=== PATIENT | male | born 1935 | race Caucasian/White ===

== ENCOUNTER → 2016-06-18 | Outpatient (CLI) | payer OTHER ==
[~2016-06-18] MED LIST: AGG PO; ATOR-24 PO; ENAL1TAB31 PO; EXM/25 PO; EYE PROMISE PO; FINA5TAB4 PO; FURO-85 PO; HYDR-5688 PO; INSUINJ SC; INSUINJ17 SC; LEUP1INJ15 IM; LEVO125T4 PO; LPT40 PO; LSX40 PO; LVQ500 PO; METO50TA16 PO; MULT-506 PO; THERA TOP; TRAV0.00 OPB; [UNRECOGNIZED DRUG - CODE] PO
--- NOTE | 2016-06-18 14:18 | DIAGNOSTIC IMAGING REPORT ---
PET/CT HISTORY: Breast cancer. TECHNIQUE: PET/CT was performed from the base of the skull through the pelvis following the intravenous administration of 14.4 mCi of F18-FDG. Non-contrast CT imaging was performed over the same range without breath-hold for attenuation correction of PET images and anatomic correlation, but not for primary interpretation as it is not of standard diagnostic quality. CT DOSE: COMPARISON: PET CT 01/09/2016. FINDINGS: HEAD AND NECK: FDG uptake within the thyroid gland persists and is likely physiologic. This demonstrates an SUV max of 4. No FDG avid or enlarged cervical lymph nodes. There are symmetric FDG uptake within the brain. CHEST: Trace bilateral pleural effusions have improved. Stable 6 mm retrocrural lymph node which does not demonstrate abnormal FDG uptake. Subcentimeter mediastinal lymph nodes remain stable and do not demonstrate abnormal FDG uptake. Multiple bilateral hilar FDG avid lymph nodes are again noted. These demonstrate increased FDG uptake compared to the prior study. Dominant FDG avid lymph node on the left demonstrates an SUV max of 7.8. This previously demonstrated an SUV max of 3.9. In addition, there are multiple bilateral subcentimeter axillary lymph nodes which have slightly increased in size since the prior study. These also demonstrate mild FDG uptake which is new from the prior study. Dominant left axillary lymph node on image 68 measures 9 mm and demonstrates an SUV max of 3.3. Dominant right axillary lymph node/soft tissue mass on image 82 measures 9 mm and demonstrates an SUV max of 2.2. No suspicious or FDG avid pulmonary nodules. ABDOMEN/PELVIS: Below the diaphragm, tracer is distributed physiologically in the gastrointestinal and genitourinary tracts. There is no significant lymphadenopathy. No change in the 2 adjacent small foci of FDG uptake within the mid sigmoid colon. The focal area of FDG uptake within the proximal to mid sigmoid colon corresponds to a calcified density and may represent postoperative change. The 2 cm focal thickening within the mid to distal sigmoid colon on image 179 persists. The FDG uptake associated with this area has slightly improved. This currently measures an SUV max of 6, previously measuring SUV max of 8.6. MUSCULOSKELETAL: There is no FDG-avid or destructive bone lesion. IMPRESSION: 1. Interval increase in the FDG uptake associated with the bilateral hilar lymph nodes. 2. Multiple bilateral subcentimeter axillary lymph nodes have slightly increased in size and now demonstrate mild FDG uptake. 3. There are again noted 2 focal areas of FDG uptake within the mid sigmoid colon as described above. These could be associated with postoperative change or a colonic mass. Electronically signed by: Jono Zheng M.D. 06/18/2016 2:17 PM Dictated Date/Time: 06/18/2016 1:57 PM
== END | disposition home or self-care (01) ==
LOC: C.PET 10:52
PROVIDERS: ATTEND Internal Medicine Hematology & Oncology
DX: C50.929 Malignant neoplasm of unspecified site of unspecified male breast (principal)

== ENCOUNTER → 2016-08-07 | Outpatient (CLI) | payer OTHER ==
[~2016-08-07] MED LIST changes: +ALBINSX INH; +ALFU1TAB2 PO; +ATOR-22 PO; +BCTCR/30 EXT; +CIPR1TAB11 PO; +CLOT1PAK TOP; +ERGO500037 PO; +ERYOPO OP; +INSHNI SC; +INSHRIE SC; +LEUP1INJ15 INJ; -LEVO125T4 PO; +LEVO125T5 PO; +MBXC PO; +ONDA8TAB6 PO; +OXGN
[2016-08-07 20:09] LABS: URINE APPEARANCE CLEAR (CLEAR); URINE BILIRUBIN NEG (NEG); URINE COLOR YELLOW; URINE NITRITE NEG (NEG); URINE SPECIFIC GRAVITY 1.014 (1.000-1.030); UROBILINOGEN NEG (NEG)
[2016-08-07 20:12] LABS: MANUAL MICROSCOPIC REQUIRED? NO; REVIEW REQ? NO
== END | disposition home or self-care (01) ==
LOC: C.LABSPEC 09:40
PROVIDERS: ATTEND Internal Medicine
DX: R31.0 Gross hematuria (principal)

== ENCOUNTER → 2016-08-08 | Outpatient (CLI) | payer OTHER | END | disposition home or self-care (01) | LOC: C.LAB 11:53 | PROVIDERS: ATTEND Internal Medicine Nephrology | DX: R60.9 Edema, unspecified (principal); E21.3 Hyperparathyroidism, unspecified; R31.29 Other microscopic hematuria; R80.9 Proteinuria, unspecified; N18.1 Chronic kidney disease, stage 1; I12.9 Hypertensive chronic kidney disease with stage 1 through stage 4 chronic kidney disease, or unspecified chronic kidney disease ==

== ENCOUNTER → 2016-08-12 | Outpatient (CLI) | payer OTHER ==
[2016-08-12 16:18] LABS: URINE APPEARANCE CLEAR (CLEAR); URINE BILIRUBIN NEG (NEG); URINE COLOR YELLOW; URINE EPITHELIAL CELL AUTO 20-30 /lpf (0-5); URINE NITRITE NEG (NEG); URINE SPECIFIC GRAVITY 1.015 (1.000-1.030); UROBILINOGEN NEG (NEG)
[2016-08-12 16:23] LABS: MANUAL MICROSCOPIC REQUIRED? NO; REVIEW REQ? YES
== END | disposition home or self-care (01) ==
LOC: C.LABSPEC 15:22
PROVIDERS: ATTEND Internal Medicine
DX: R31.0 Gross hematuria (principal)

== ENCOUNTER → 2016-09-30 | Outpatient (CLI) | payer OTHER ==
--- NOTE | 2016-09-30 15:40 | ECHOCARDIOGRAM REPORT ---
*NOTICE TO RECEIVING REPUBLICAN AGENCY This information is strictly Confidential and protected under [place] law. [place] law prohibits you from making any further disclosure of this information unless further disclosure is expressly permitted by the written consent of the person to whom it pertains or is authorized by law. A general authorization for the release of medical or other information is not sufficient for this purpose. Hospital accepts no responsibility if the information is made available to any other person, INCLUDING THE PATIENT. Interpretation Summary * Name: LUKE GONZALEZ Study Date: 09/30/2016 01:22 PM * Patient Location: [facility] * : 1935 (M/d/yyyy) Gender: Male Height: 65 in * Age: 80 yrs Ethnicity: [place] Weight: 165 lb * Ordering Physician: JESSICA PATTEN MD * Performed By: Rosa Lewis * * Reason For Study: BREAST CANCER * BSA: 1.8 m2 * -- Conclusions -- * Left ventricular systolic function is normal. * No obvious wall motion abnormality. * Ejection Fraction = 50-55%. * There is borderline concentric left ventricular hypertrophy. * There is mild mitral regurgitation. Procedure Details * A complete two-dimensional transthoracic echocardiogram was performed (2D, M-mode, Doppler and color flow Doppler). * The study was technically difficult. 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 Left Ventricle * The left ventricle is grossly normal size. * There is borderline concentric left ventricular hypertrophy. * Left ventricular systolic function is normal. * Ejection Fraction = 50-55%. * No obvious wall motion abnormality. Right Ventricle * The right ventricle is not well visualized. * The right ventricular systolic function is reduced as assessed by tricuspid annular plane systolic excursion (TAPSE) (TAPSE <1.6 cm). Atria * The left atrial size is normal. * Right atrium not well visualized. * There is no evidence of atrial septal defect, but resolution does not allow assessment for a patent foramen ovale. Mitral Valve * The mitral valve is grossly normal. * There is mild mitral regurgitation. Tricuspid Valve * The tricuspid valve is not well visualized, but is grossly normal. * Significant tricuspid regurgitation is absent. Aortic Valve * The aortic valve is trileaflet. * The aortic valve opens well. * No hemodynamically significant valvular aortic stenosis. * Trace aortic regurgitation. Pulmonic Valve * The pulmonary valve is not well seen, but the Doppler examination is normal without significant regurgitation or stenosis. Great Vessels * The aortic root is normal size. Pericardium/Pleural * There is no pericardial effusion. Great Vessels * IVC not well seen. Left Ventricular Diastolic Function * Grade I diastolic dysfunction, (abnormal relaxation pattern). MMode 2D Measurements and Calculations IVSd 1.5 cm IVSs 2.0 cm LVIDd 4.5 cm LVIDs 3.5 cm LVPWd 1.3 cm LVPWs 1.7 cm IVS/LVPW 1.1 FS 21.8 % EDV(Teich) 94.3 ml ESV(Teich) 52.5 ml EF(Teich) 44.3 % EDV(cubed) 93.4 ml ESV(cubed) 44.6 ml EF(cubed) 52.2 % % IVS thick 33.0 % % LVPW thick 31.0 % LV mass(C)d 252.5 grams LV mass(C)dI 138.5 grams/m\S\2 LV mass(C)s 281.1 grams LV mass(C)sI 154.2 grams/m\S\2 CO(Teich) 2.5 l/min CI(Teich) 1.4 l/min/m\S\2 SV(Teich) 41.7 ml SI(Teich) 22.9 ml/m\S\2 CO(cubed) 2.9 l/min CI(cubed) 1.6 l/min/m\S\2 SV(cubed) 48.8 ml SI(cubed) 26.8 ml/m\S\2 EPSS 1.0 cm ACS 1.5 cm LA dimension 3.8 cm asc Aorta Diam 3.1 cm LVOT diam 2.0 cm LVOT area 3.3 cm\S\2 LVAd ap4 43.0 cm\S\2 LVLd ap4 9.1 cm EDV(MOD-sp4) 166.0 ml LVAs ap4 28.6 cm\S\2 LVLs ap4 7.5 cm ESV(MOD-sp4) 95.0 ml EF(MOD-sp4) 42.8 % LVAd ap2 29.3 cm\S\2 LVLd ap2 8.1 cm EDV(MOD-sp2) 90.0 ml LVAs ap2 19.8 cm\S\2 LVLs ap2 7.0 cm ESV(MOD-sp2) 48.0 ml EF(MOD-sp2) 46.7 % CO(MOD-sp4) 4.2 l/min CI(MOD-sp4) 2.3 l/min/m\S\2 SV(MOD-sp4) 71.0 ml SI(MOD-sp4) 39.0 ml/m\S\2 CO(MOD-sp2) 2.5 l/min CI(MOD-sp2) 1.4 l/min/m\S\2 SV(MOD-sp2) 42.0 ml SI(MOD-sp2) 23.0 ml/m\S\2 Doppler Measurements and Calculations MV E max lupe 71.6 cm/sec MV A max lupe 92.8 cm/sec MV E/A 0.77 MV dec time 0.26 sec Ao V2 max 91.6 cm/sec Ao max PG 3.4 mmHg Ao max PG (full) 0.54 mmHg BRITNI(V,A) 3.0 cm\S\2 BRITNI(V,D) 3.0 cm\S\2 LV V1 max PG 2.8 mmHg LV V1 max 83.9 cm/sec PA V2 max 70.6 cm/sec PA max PG 2.0 mmHg
== END | disposition home or self-care (01) ==
LOC: C.CPL 12:35
PROVIDERS: ATTEND Internal Medicine Hematology & Oncology
DX: C50.921 Malignant neoplasm of unspecified site of right male breast (principal)

== ENCOUNTER 2016-10-22 06:28 | Day surgery (SDC) | payer OTHER ==
[2016-10-13 15:56] VITALS: BMI 27.0
[~2016-10-22] VITALS: Ht 165.1 cm; Wt 75.0 kg
[~2016-10-22 06:28] MED LIST changes: -ALBINSX INH; -ALFU1TAB2 PO; -ATOR-22 PO; -BCTCR/30 EXT; +CEFAZOLIN 2000 MG/60 ML D5W IV SCH; -CIPR1TAB11 PO; -CLOT1PAK TOP; -ERGO500037 PO; -ERYOPO OP; -EXM/25 PO; -HYDR-5688 PO; -INSHNI SC; -INSHRIE SC; +LACTATED RINGER'S 1000ML 1,000 ML IV SCH; -LEUP1INJ15 IM; -LEUP1INJ15 INJ; -LPT40 PO; -LVQ500 PO; -MBXC PO; -MULT-506 PO; -ONDA8TAB6 PO; -OXGN; -TRAV0.00 OPB
[2016-10-22 07:08] VITALS: BP 157/78; PULSE 59; TEMP 36.7; O2SAT 94; Ht 165.1 cm; Wt 75.0 kg
[2016-10-22] MEDS ORDERED: FENTANYL CITRATE INJ 50 MCG/1 ML 2 ML VIAL ONE (07:40)
[2016-10-22] MEDS ORDERED: HYDR-5688 PO (07:58)
--- NOTE | 2016-10-22 08:00 | Discharge Instructions ---
Discharge Instructions Date of Service Oct 22, 2016. Visit Reason for Visit: Poor Venous Access, Invasive Ductal Carcinoma Righ Discharge Discharge Diagnosis / Problem: A-port placement Discharge Goals Goal(s): Improve disease control Activity Recommendations Activity Limitations: as noted below Shower/Bathe: keep incision dry (for 2 days) Driving or Machine Use: if not taking [place] Anesthesia . Post Anesthesia Instructions: If you have had General Anesthesia or IV Sedation: * Do not drive today. * Resume driving when surgeon permits. * Do not make important decisions or sign legal documents today. * Call surgeon for: 1. Temperature elevations greater than 101 degrees F. 2. Uncontrollable pain. 3. Excessive bleeding. 4. Persistent nausea and vomiting. 5. Medication intolerance (nausea, vomiting or rash). * For nausea and vomiting use only clear liquids such as: tea, soda, bouillon until nausea subsides, then gradually increase diet as tolerated. * If you have any concerns or questions, call your surgeon's office. If physician is unavailable and it is an emergency, call 911 or go to the nearest emergency room. . Instructions / Follow-Up Instructions / Follow-Up Dr. Monson's office in 2 weeks for suture removal, call [phone] for any questions Diet Recommendations Recommended Home Diet: no limitations Pending Studies Studies pending at discharge: no Medical Emergencies . Who to Call and When: Medical Emergencies: If at any time you feel your situation is an emergency, please call 911 immediately. . Non-Emergent Contact Non-Emergency issues call your: Surgeon Call Non-Emergent contact if: you have a fever, temperature is above 101.5, your pain is not controlled, wound has increased redness . . "Provider Documentation" section prepared by Ruiz Russo. .
[2016-10-22] MEDS ORDERED: LACTATED RINGER'S 1000ML 1,000 ML IV PRN (08:06)
--- NOTE | 2016-10-22 08:08 | History & Physical Bridge Note ---
H&P Re-Evaluation Bridge Note: I have examined the patient, reviewed the History & Physical and in the interval since the performance of the History & Physical I have noted the following changes of clinical significance: No changes noted
[2016-10-22] MEDS ORDERED: THROMBIN FOR SOLN 20000 UNIT KIT ONE (08:13)
[2016-10-22] MEDS ORDERED: CEFAZOLIN SOD 1 GM VIAL ONE (08:14)
[2016-10-22] MEDS ORDERED: HEPARIN SOD (PORCINE) 1000 UNIT/ML 10 ML VIAL ONE (08:14)
[2016-10-22] MEDS ORDERED: LIDOCAINE HCL 1% 20 ML VIAL ONE (08:14)
[2016-10-22] MEDS ORDERED: ONDANSETRON INJ 2 MG/ML 2 ML VIAL IV PRN ×3 (08:15→09:15)
[2016-10-22] MEDS ORDERED: FENTANYL CITRATE INJ 50 MCG/1 ML 2 ML VIAL IV PRN (08:15)
[2016-10-22] MEDS: CEFAZOLIN 2000 MG/60 ML D5W IV SCH ×2 (08:24→08:29)
[2016-10-22] MEDS ORDERED: KETAMINE HCL INJ 50 MG/ML 10 ML VIAL ONE (08:59)
[2016-10-22] MEDS ORDERED: PROPOFOL IV EMULSION 10 MG/ML 20 ML VIAL IV ONE (08:59)
[2016-10-22] MEDS ORDERED: LIDOCAINE HCL 2% 2 ML VIAL (20MG/ML) ONE (08:59)
[2016-10-22] MEDS ORDERED: SODIUM CHLORIDE 0.9% 1000ML 1,000 ML IV SCH (09:02)
[2016-10-22] MEDS ORDERED: HYDROCODONE/ACETAMOPHEN 5/325MG TAB PO PRN ×3 (09:15)
[2016-10-22] MEDS ORDERED: MoRPHine SULFATE 2 MG/ML CARP IV PRN (09:15)
--- NOTE | 2016-10-22 09:17 | [facility] Post Operative Brief Note ---
Immediate Operative Summary Operative Date Oct 22, 2016. 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 Kole Monson Criminal Defense Lawyer Surgeon(s) none Estimated Blood Loss 5mL Findings placed via Lt cephalic vein Specimens none per surgeon Anesthesia local/ sedation Complication(s) None Disposition Recovery Room / PACU
--- NOTE | 2016-10-22 09:39 | OPERATIVE REPORT ---
DATE OF OPERATION: 10/22/2016 NAME OF OPERATION: Access port. PREOPERATIVE DIAGNOSIS: Breast cancer. POSTOPERATIVE DIAGNOSIS: Same. STAFF SURGEON: Dr. Monson. ANESTHESIA: 1% plain lidocaine with sedation. PROCEDURE: The patient was brought in the operating room and placed on the operating table in supine position. His chest was prepped and draped in usual fashion. 1% plain lidocaine was used to anesthetize skin and subcutaneous tissue over the left deltopectoral groove. Incision made carrying dissection down and identifying a large cephalic vein. The vein was ligated distally, then opened. A catheter was easily passed down into the superior vena cava, secured in place using 2-0 silk suture. It was aspirated and flushed with heparinized solution. This was done under fluoroscopy. At this point, a pocket was fashioned in the chest wall, the port attached to the catheter, placed into the pocket, secured using 3-0 Prolene suture. The pocket was irrigated with antibiotic solution. The port was aspirated and flushed with heparinized solution. The subcutaneous tissue was reapproximated using 2-0 chromic catgut suture then the skin reapproximated using 4-0 nylon suture. The patient was transferred to recovery room in stable condition. I attest to the content of the Intraoperative Record and any orders documented therein. Any exception s are noted below.
[2016-10-22 09:50] VITALS: BP 173/81; PULSE 53; TEMP 36.9; O2SAT 100
--- NOTE | 2016-10-22 09:52 | DIAGNOSTIC IMAGING REPORT ---
SINGLE VIEW CHEST CLINICAL HISTORY: Infusion port placement. Breast cancer. FINDINGS: An AP, portable, upright chest radiograph is compared to study dated 04/15/2016 and correlated with chest CT dated 06/25/2015. The examination is degraded by portable technique and patient rotation. A left subclavian central venous infusion port has been placed. The tip of the catheter projects over the cavoatrial junction. The patient is status post midline sternotomy. The heart is enlarged and there is atherosclerotic calcification of the thoracic aorta. The pulmonary vasculature is noncongested. Atelectasis versus scarring is again seen at the left lung base. Chronic elevation of the left hemidiaphragm is unchanged. There are small pleural effusions. No pneumothorax is seen. The skeletal structures are osteopenic. There are healed left-sided rib fractures. IMPRESSION: 1. A left subclavian central venous infusion port has been placed as detailed above. No pneumothorax is identified post procedure. 2. Cardiomegaly without radiographic evidence of congestive failure. 3. No airspace consolidation or large pleural effusion is identified. Electronically signed by: Matt Olivares M.D. 10/22/2016 9:50 AM Dictated Date/Time: 10/22/2016 9:48 AM
--- NOTE | 2016-10-22 09:53 | Anesthesiology Progress Note ---
Anesthesia Post Op Note Date & Time Oct 22, 2016 at 09:53 Vital Signs Pain Intensity: 0 Vital Signs Past 12 Hours Date Time Temp Pulse Resp B/P (MAP) Pulse Ox O2 Delivery O2 Flow Rate FiO2 10/22/16 09:35 52 20 159/61 100 Mask 10 10/22/16 09:25 52 20 202/60 100 Mask 10 10/22/16 09:17 36. 54 14 200/63 100 Mask 10 10/22/16 07:08 36.7 59 19 157/78 (104) 94 Room Air Notes Mental Status: alert / awake / arousable, participated in evaluation Pt Amnestic to Procedure: No (recall as expected) Nausea / Vomiting: adequately controlled Pain: adequately controlled Airway Patency, RR, SpO2: stable & adequate BP & HR: stable & adequate Hydration State: stable & adequate Anesthetic Complications: no major complications apparent
[2016-10-22 10:20] VITALS: BP 153/69; PULSE 53; TEMP 36.9; O2SAT 98
== END 2016-10-22 10:55 | disposition home or self-care (01) ==
LOC: C.ACU 06:28
PROVIDERS: ATTEND Surgery
DX: C50.921 Malignant neoplasm of unspecified site of right male breast (principal); I25.10 Atherosclerotic heart disease of native coronary artery without angina pectoris; I72.8 Aneurysm of other specified arteries; I77.1 Stricture of artery; E11.42 Type 2 diabetes mellitus with diabetic polyneuropathy; E11.22 Type 2 diabetes mellitus with diabetic chronic kidney disease; I13.2 Hypertensive heart and chronic kidney disease with heart failure and with stage 5 chronic kidney disease, or end stage renal disease; N18.1 Chronic kidney disease, stage 1; N40.1 Benign prostatic hyperplasia with lower urinary tract symptoms; N13.8 Other obstructive and reflux uropathy; C67.9 Malignant neoplasm of bladder, unspecified; G35 Multiple sclerosis; E21.3 Hyperparathyroidism, unspecified; E03.9 Hypothyroidism, unspecified; I50.1 Left ventricular failure, unspecified; Z95.1 Presence of aortocoronary bypass graft; Z86.73 Personal history of transient ischemic attack (TIA), and cerebral infarction without residual deficits; Z79.4 Long term (current) use of insulin; Z79.82 Long term (current) use of aspirin; Z79.899 Other long term (current) drug therapy

== ENCOUNTER → 2016-10-31 | Outpatient (CLI) | payer OTHER ==
[~2016-10-31] MED LIST changes: -CEFAZOLIN 2000 MG/60 ML D5W IV SCH; +HYDR-5688 PO; -LACTATED RINGER'S 1000ML 1,000 ML IV SCH; +LEVO125T4 PO; -LEVO125T5 PO
== END | disposition home or self-care (01) ==
LOC: C.RC 16:54
PROVIDERS: ATTEND Internal Medicine
DX: G47.34 Idiopathic sleep related nonobstructive alveolar hypoventilation (principal)

== ENCOUNTER → 2016-11-13 | Outpatient (CLI) | payer OTHER ==
[2016-11-13 15:58] LABS: BASO % 0.5 %; BASO ABS # 0.02 K/uL (0-0.2); COMPLETE YES; EOS % 0.2 %; HEMATOCRIT 30.1 % (42-52); IG% 1.2 %; LYMPH % 14.5 %; LYMPH ABS # 0.58 K/uL (1.2-3.4); MEAN CELL VOLUME 96.8 fL (80-100); MEAN CORPUSCULAR HEMOGLOBIN 30.9 pg (25-34); MEAN CORPUSCULAR HGB CONC 31.9 g/dl (32-36); MEAN PLATELET VOLUME 9.4 fL (7.4-10.4); MONO % 20.4 %; NEUT % 63.2 %; PLATELET COUNT 231 K/uL (130-400); RED BLOOD COUNT 3.11 M/uL (4.7-6.1); WHITE BLOOD COUNT 4.01 K/uL (4.8-10.8)
[2016-11-13 16:06] LABS: ALT/SGPT 14 U/L (12-78); AST/SGOT 32 U/L (15-37); BLOOD UREA NITROGEN 14 mg/dl (7-18); BUN/CREATININE RATIO 15.9 (10-20); CALCIUM 8.4 mg/dl (8.5-10.1); CARBON DIOXIDE 35 mmol/L (21-32); CHLORIDE 97 mmol/L (98-107); GLUCOSE 280 mg/dl (70-99); POTASSIUM 4.5 mmol/L (3.5-5.1); SODIUM 137 mmol/L (136-145)
[2016-11-13 16:09] LABS: ALB/GLOB RATIO 0.5 (0.9-2); ALKALINE PHOSPHATASE 69 U/L (45-117)
== END | disposition home or self-care (01) ==
LOC: C.LABSPEC 15:07
PROVIDERS: ATTEND Internal Medicine Hematology & Oncology
DX: C50.921 Malignant neoplasm of unspecified site of right male breast (principal)

== ENCOUNTER → 2016-11-21 | Outpatient (CLI) | payer OTHER ==
[2016-11-21 15:15] LABS: HEPATITIS B AB NEG
== END | disposition home or self-care (01) ==
LOC: C.LAB 10:38
PROVIDERS: ATTEND Family Medicine
DX: Z77.21 Contact with and (suspected) exposure to potentially hazardous body fluids (principal); C50.929 Malignant neoplasm of unspecified site of unspecified male breast

== ENCOUNTER → 2017-01-07 | Outpatient (CLI) | payer OTHER | END | disposition home or self-care (01) | LOC: C.LABSPEC 12:04 | PROVIDERS: ATTEND Nurse Practitioner Family | DX: C50.921 Malignant neoplasm of unspecified site of right male breast (principal) ==

== ENCOUNTER 2017-03-14 18:14 | Emergency (ER) | payer OTHER ==
[~2017-03-14 18:14] MED LIST changes: -LEVO125T4 PO; +LEVO125T5 PO
[2017-03-14 18:17] VITALS: TEMP 36.5
[2017-03-14] MEDS ORDERED: SODIUM CHLORIDE 0.9% 1000ML 1,000 ML IV STA (18:37)
--- NOTE | 2017-03-14 18:45 | DIAGNOSTIC IMAGING REPORT ---
CHEST ONE VIEW PORTABLE CLINICAL HISTORY: 81 years-old Male presenting with weakness. TECHNIQUE: Portable upright AP view of the chest was obtained. COMPARISON: 03/09/2017. FINDINGS: Left subclavian Mediport terminates at the superior cavoatrial junction. Median sternotomy wires and scattered mediastinal surgical clips unchanged. Atherosclerosis of aortic arch. Cardiac silhouette remains enlarged. Minimal increase in left retrocardiac opacity. No large effusion or pneumothorax. Osteopenia suggested. Upper abdomen normal. IMPRESSION: 1. Left retrocardiac opacity, possibly atelectasis. 2. Cardiomegaly. No angel pulmonary edema. Electronically signed by: Chris Garcia M.D. 03/14/2017 6:44 PM Dictated Date/Time: 03/14/2017 6:43 PM
--- NOTE | 2017-03-14 18:59 | EMERGENCY ROOM VISIT NOTE ---
History Report prepared by Avani: Michael Osman Under the Supervision of: Dr. Vernon Browning M.D. First contact with patient: 18:17 Stated Complaint: WEAKNESS/ACHING BODY History of Present Illness The patient is a 81 year old male who presents to the Emergency Room with complaints of worsening weakness that began a week ago. The patient is accompanied by his who states that he has been weaker than usual and has not been speaking recently. She states that he went to the ED on 03/09 for his symptoms. The patient's reports that he was given Doxycycline, which he has one more dose left of. His reports that he got a call yesterday telling him that he had bacteria in his urine and was diagnosed with a UTI. She states that he was put on Cipro. His states that the patient's weakness has been worsening, which caused her to call his doctor who told her to bring him to the ED. She states that the patient usually uses 2.5 L of oxygen at night. She admits that the patient has a history of breast cancer, breast surgery, and MS. The patient's reports that his last chemotherapy treatment was in February. The patient states that he is on Aggrenox. She denies that the patient has been experiencing a fever, but admits the patient has been complaining of feeling warm. Source of History: spouse/significant other Onset: a week ago Position: other (global) Timing: worsening Modifying Factors (Relieving): other (Cipro) Associated Symptoms: No fevers Review of Systems All systems have been listed, reviewed, and are negative other than those previously mentioned. Please see Additional Medical History Sheet. Past Medical & Surgical Medical Problems: (1) Breast cancer in male (2) CHF (congestive heart failure) (3) Diabetes (4) HTN (hypertension) (5) Hypoxia (6) MS (multiple sclerosis) (7) TIA (transient ischemic attack) Family History Cancer Social History Smoking Status: Never Smoker Drug Use: none Marital Status: Housing Status: lives with significant other Occupation Status: retired Current/Historical Medications Scheduled Alfuzosin Hcl (Alfuzosin Hcl Er), 10 MG PO QPM Atorvastatin (Lipitor), 20 MG PO QPM Ciprofloxacin Tab (Cipro), 250 MG PO BID Yhnezyigckgr-Oblskitwcvywe-Pvd (Dermacinrx Therazole Ricco 1-0.05 & 20 %), 1 APPLN TOP BID Dipyridamole/Aspirin (Aggrenox 25-200 mg), 1 CAP PO Q2D Dipyridamole/Aspirin (Aggrenox 25-200 mg), 2 CAP PO Q2D Enalapril Maleate (Vasotec), 40 MG PO QAM Ergocalciferol (Vitamin D 99187 Unit), 50,000 UNIT PO WK Finasteride (Proscar), 5 MG PO noon Furosemide (Furosemide), 40 MG PO QAM Furosemide (Lasix), 20 MG PO noon Home O2 Therapy (Oxygen), 2 LITERS NA HS Insulin Human NPH (Humulin N), 25-35 UNITS SC BID Insulin Human Regular (Humulin R), 8-15 UNITS SC BID Leuprolide Acetate (Lupron Depot), Unknown Dose INJ Q6MO Levothyroxine Sodium (Levothyroxine Sodium), 125 MCG PO QAM Magic Swizzle (Magic Swizzle - SUCRALFA/ALUM/MAG/DIPHEN/LIDO), 15 ML PO QID Metoprolol Tartrate (Lopressor) (Lopressor), 50 MG PO BID Mupirocin 2% (Bactroban 2%), 1 APPLN EXT TID Ondansetron Hcl (Zofran), 8 MG PO Q8 Scheduled PRN Albuterol Sulf (Albuterol Sulfate), 1 DOSE INH Q4H PRN for Shortness of Breath Erythromycin Opth (Erythromycin Opth), 1 APPLN OP QID & HS PRN for AFFECTED EYES Allergies Coded Allergies: Nitrofurantoin (Verified Allergy, Intermediate, DIARRHEA, NAUSEA, 03/14/17 ) Exemestane (Verified Allergy, Unknown, RASH, 03/14/17) Physical Exam Vital Signs Date Time Temp Pulse Resp B/P (MAP) Pulse Ox O2 Delivery O2 Flow Rate FiO2 03/14/17 23:09 88 18 162/72 94 03/14/17 21:09 70 18 171/101 92 Room Air 03/14/17 18:17 36.5 70 20 167/75 91 Room Air Physical Exam GENERAL: Patient awake, alert, minimally conversant. Patient follows commands. Patient does not appear toxic. Patient is adequately hydrated and well- nourished. SKIN: Midline sternotomy scar. Dry scaly erythema over the right chest wall. HEENT: Normal head, pupils equal, reactive to light and accommodation. Ears normal. Oral cavity and posterior pharynx appear normal. Neck: Without adenopathy, no neck vein distention. LUNGS: Clear to auscultation. No wheezes, no rales, no rhonchi. HEART: No murmurs. No gallops. No rubs CHEST: Port located in the left upper chest. ABDOMEN: No masses, no rebound, no hepatomegaly or splenomegaly. Slightly distended. EXTREMITIES: No signs of trauma. No pedal or pretibial edema. No calf or thigh tenderness. NEUROLOGIC: Cranial nerves II-XII within normal limits. No gross motor sensory function deficits. Medical Decision & Procedures ER Provider Diagnostic Interpretation: X ray results are stated below per my interpretation and the radiologist's interpretation. CHEST ONE VIEW PORTABLE CLINICAL HISTORY: 81 years-old Male presenting with weakness. TECHNIQUE: Portable upright AP view of the chest was obtained. COMPARISON: 03/09/2017. FINDINGS: Left subclavian Mediport terminates at the superior cavoatrial junction. Median sternotomy wires and scattered mediastinal surgical clips unchanged. Atherosclerosis of aortic arch. Cardiac silhouette remains enlarged. Minimal increase in left retrocardiac opacity. No large effusion or pneumothorax. Osteopenia suggested. Upper abdomen normal. IMPRESSION: 1. Left retrocardiac opacity, possibly atelectasis. 2. Cardiomegaly. No angel pulmonary edema. Electronically signed by: Chris Garcia M.D. 03/14/2017 6:44 PM Dictated Date/Time: 03/14/2017 6:43 PM Laboratory Results 03/14/17 20:04 Red Blood Count 3.54, Mean Corpuscular Volume 95.8, Mean Corpuscular Hemoglobin 30.5, Mean Corpuscular Hemoglobin Concent 31.9, Mean Platelet Volume 10.1, Neutrophils (%) (Auto) 75.1, Lymphocytes (%) (Auto) 9.6, Monocytes (%) (Auto) 14.7, Eosinophils (%) (Auto) 0.1, Basophils (%) (Auto) 0.1, Neutrophils # (Auto ) 11.85, Lymphocytes # (Auto) 1.51, Monocytes # (Auto) 2.33, Eosinophils # (Auto ) 0.02, Basophils # (Auto) 0.02 03/14/17 20:04 Test 03/14/17 20:04 03/14/17 20:10 03/14/17 21:00 White Blood Count 15.80 K/uL (4.8-10.8) Red Blood Count 3.54 M/uL (4.7-6.1) Hemoglobin 10.8 g/dL (14.0-18.0) Hematocrit 33.9 % (42-52) Mean Corpuscular Volume 95.8 fL (80-100) Mean Corpuscular Hemoglobin 30.5 pg (25-34) Mean Corpuscular Hemoglobin Concent 31.9 g/dl (32-36) Platelet Count 226 K/uL (130-400) Mean Platelet Volume 10.1 fL (7.4-10.4) Neutrophils (%) (Auto) 75.1 % Lymphocytes (%) (Auto) 9.6 % Monocytes (%) (Auto) 14.7 % Eosinophils (%) (Auto) 0.1 % Basophils (%) (Auto) 0.1 % Neutrophils # (Auto) 11.85 K/uL (1.4-6.5) Lymphocytes # (Auto) 1.51 K/uL (1.2-3.4) Monocytes # (Auto) 2.33 K/uL (0.11-0.59) Eosinophils # (Auto) 0.02 K/uL (0-0.5) Basophils # (Auto) 0.02 K/uL (0-0.2) RDW Standard Deviation 49.8 fL (36.4-46.3) RDW Coefficient of Variation 14.3 % (11.5-14.5) Immature Granulocyte % (Auto) 0.4 % Immature Granulocyte # (Auto) 0.07 K/uL (0.00-0.02) Anion Gap 5.0 mmol/L (3-11) Estimated GFR () 105.8 Estimated GFR (Non- 91.3 BUN/Creatinine Ratio 15.0 (10-20) Calcium Level 8.3 mg/dl (8.5-10.1) Total Bilirubin 0.3 mg/dl (0.2-1) Aspartate Amino Transf (AST/SGOT) 15 U/L (15-37) Alanine Aminotransferase (ALT/SGPT) 13 U/L (12-78) Alkaline Phosphatase 99 U/L (45-117) Total Protein 6.7 gm/dl (6.4-8.2) Albumin 2.2 gm/dl (3.4-5.0) Globulin 4.5 gm/dl (2.5-4.0) Albumin/Globulin Ratio 0.5 (0.9-2) Bedside Lactic Acid Venous 0.91 mmol/L (0.90-1.70) Urine Color YELLOW Urine Appearance CLEAR (CLEAR) Urine pH 5.0 (4.5-7.5) Urine Specific [place] 1.017 (1.000-1.030) Urine Protein NEG (NEG) Urine Glucose (UA) NEG (NEG) Urine Ketones NEG (NEG) Urine Occult Blood NEG (NEG) Urine Nitrite NEG (NEG) Urine Bilirubin NEG (NEG) Urine Urobilinogen NEG (NEG) Urine Leukocyte Esterase NEG (NEG) Laboratory results as stated above per my review. Medications Administered Medications (Trade) Dose Ordered Sig/Jr Route Start Time Stop Time Status Last Admin Dose Admin Sodium Chloride 1,000 ml @ 500 mls/hr Q2H STAT IV 03/14/17 18:37 03/14/17 20:36 DC 03/14/17 19:46 500 MLS/HR Heparin Sodium (Porcine) (Heparin 100 Unit/ml 5ml Flush) 5 ml STK-MED ONCE .ROUTE 03/14/17 22:16 03/14/17 22:17 DC 03/14/17 22:28 5 ML ECG Indication: weakness Rate (beats per minute): 69 Rhythm: sinus rhythm Findings: LBBB, no acute ischemic change, no ectopy Comparison ECG Date: 03/09/17 Change: no significant change ED Course 1817: Past medical records reviewed. The patient was evaluated in room C06. A complete history and physical examination was performed. 1836: Ordered Sodium Chloride 1000 ml @ 500 mls/hr IV. 2153: Upon reevaluation, the patient appeared to have improvement of his symptoms. I discussed today's findings with the patient. He verbalized agreement of the treatment plan. The patient was discharged home. Medical Decision Nurses notes reviewed. Medical history sheet reviewed. Differential diagnosis includes but is not limited to: UTI, sepsis, dehydration, post-chemotherapy reaction, MS exacerbation, pneumonia. Multiple labs, EKG and imaging were obtained. Please see above. The patient appears to have chronic findings on his chest x-ray but no acute infiltrates. The patient does not appear to have a urinary tract infection. White count is elevated to greater than 15. The patient has had episodes of weakness like this in the past usually about 3 weeks after his last chemotherapy. That happens to be the case now. This also could be related to an exacerbation of his MS. Patient does not appear to have an active infection. The patient is currently on ciprofloxacin which he will continue. The patient's to follow-up with his oncologist this coming week. Medication Reconcilliation Current Medication List: was personally reviewed by me Blood Pressure Screening Patient's blood pressure: Elevated blood pressure Blood pressure disposition: Referred to PCP Impression Primary Impression: Generalized weakness Scribe Attestation The scribe's documentation has been prepared under my direction and personally reviewed by me in its entirety. I confirm that the note above accurately reflects all work, treatment, procedures, and medical decision making performed by me. Departure Information Dispostion Home / Self-Care Referrals Chris Quiñones M.D. (PCP) Additional Instructions Continue all of your current medications as prescribed. Follow-up with your oncologist this coming week. Return here sooner if you develop any fever or chills.
[2017-03-14] MEDS ORDERED: ONDA8TAB6 PO (19:32)
[2017-03-14] MEDS ORDERED: ALFU1TAB2 PO (19:32)
[2017-03-14] MEDS ORDERED: LEUP1INJ15 INJ (19:32)
[2017-03-14] MEDS ORDERED: CLOT1PAK TOP (19:32)
[2017-03-14] MEDS ORDERED: OXGN (19:32)
[2017-03-14] MEDS ORDERED: INSHRIE SC (19:32)
[2017-03-14] MEDS ORDERED: ERGO500037 PO (19:32)
[2017-03-14] MEDS ORDERED: ALBINSX INH (19:32)
[2017-03-14] MEDS ORDERED: ATOR-22 PO (19:32)
[2017-03-14] MEDS ORDERED: MBXC PO (19:32)
[2017-03-14] MEDS ORDERED: BCTCR/30 EXT (19:32)
[2017-03-14] MEDS ORDERED: INSHNI SC (19:32)
[2017-03-14] MEDS ORDERED: CIPR1TAB11 PO (19:32)
[2017-03-14] MEDS ORDERED: ERYOPO OP (19:32)
[2017-03-14 20:28] LABS: BASO % 0.1 %; BASO ABS # 0.02 K/uL (0-0.2); COMPLETE YES; EOS % 0.1 %; HEMATOCRIT 33.9 % (42-52); IG% 0.4 %; LYMPH % 9.6 %; LYMPH ABS # 1.51 K/uL (1.2-3.4); MEAN CELL VOLUME 95.8 fL (80-100); MEAN CORPUSCULAR HEMOGLOBIN 30.5 pg (25-34); MEAN CORPUSCULAR HGB CONC 31.9 g/dl (32-36); MEAN PLATELET VOLUME 10.1 fL (7.4-10.4); MONO % 14.7 %; NEUT % 75.1 %; PLATELET COUNT 226 K/uL (130-400); RED BLOOD COUNT 3.54 M/uL (4.7-6.1)
[2017-03-14 20:54] LABS: ALT/SGPT 13 U/L (12-78); BLOOD UREA NITROGEN 10 mg/dl (7-18); CALCIUM 8.3 mg/dl (8.5-10.1); CARBON DIOXIDE 32 mmol/L (21-32); CHLORIDE 102 mmol/L (98-107); CREATININE 0.66 mg/dl (0.60-1.40); GLUCOSE 238 mg/dl (70-99); POTASSIUM 3.5 mmol/L (3.5-5.1); SODIUM 139 mmol/L (136-145)
[2017-03-14 20:57] LABS: ALB/GLOB RATIO 0.5 (0.9-2); ALKALINE PHOSPHATASE 99 U/L (45-117); AST/SGOT 15 U/L (15-37)
[2017-03-14 21:13] LABS: URINE APPEARANCE CLEAR (CLEAR); URINE BILIRUBIN NEG (NEG); URINE COLOR YELLOW; URINE NITRITE NEG (NEG); URINE SPECIFIC GRAVITY 1.017 (1.000-1.030); UROBILINOGEN NEG (NEG); ZZURINE CULT IF INDIC CATH NO
[2017-03-14 21:14] LABS: MANUAL MICROSCOPIC REQUIRED? NO; REVIEW REQ? NO
[2017-03-14 23:09] VITALS: BP 162/72; PULSE 88; O2SAT 94
== END 2017-03-14 23:10 | disposition home or self-care (01) ==
LOC: EDBD 18:14 → C.EDC 18:15
DX: R53.1 Weakness (principal); I50.9 Heart failure, unspecified; E11.9 Type 2 diabetes mellitus without complications; I11.0 Hypertensive heart disease with heart failure; C50.129 Malignant neoplasm of central portion of unspecified male breast; G35 Multiple sclerosis; Z79.82 Long term (current) use of aspirin; Z79.4 Long term (current) use of insulin